=== PATIENT | female | born 2000 ===

== ENCOUNTER → 2022-04-16 09:55 | Outpatient (CLI) | payer SELFPAY ==
[2022-04-16 20:36] LABS: Hematocrit 39.1 % (36-46); Hemoglobin 12.9 g/dL (12.0-16.0); Mean Corpuscular Hemoglobin 29.4 PG (26-34); Platelet Count 321 X10^3/uL (150-400); Red Blood Cell Count 4.39 X10^6/uL (4.0-5.2); White Blood Cell Count 9.5 X10^3/uL (4.5-11.0)
== END ==
PROVIDERS: PCP Physician Assistant Medical; Visit Provider Physician Assistant Medical
DX: R04.0 Epistaxis (principal); R42 Dizziness and giddiness
CPT/HCPCS: 85027

== ENCOUNTER 2022-04-16 14:20 | Emergency (ER) | payer BC, SELFPAY ==
[2022-04-16 15:09] VITALS: BP 133/80; PULSE 79; RESP 18; TEMP 36.9; O2SAT 100; BMI 19.8
[2022-04-16] MEDS: OXYMETAZOLINE NASAL SPRAY 15 ML 2 SPRAYS NASAL (15:28)
[2022-04-16 15:32] LABS: Add Manual Diff / Slide Review NO; Basophils Absolute Auto 0 /uL (0-100); Basophils Percent Auto 0.5 % (0-2); Eosinophils Absolute Auto 100 /uL (0-450); Eosinophils Percent Auto 0.7 % (2-4); Hematocrit 37.5 % (36-46); Hemoglobin 12.7 g/dL (12.0-16.0); Lymphocytes Absolute Auto 1500 /uL (1100-4500); Lymphocytes Percent Auto 17.3 % (25-40); Mean Corpuscular HGB Conc 33.8 % (30-36); Mean Corpuscular Hemoglobin 29.4 PG (26-34); Monocytes Absolute Auto 700 /uL (0-900); Monocytes Percent Auto 8.2 % (3-14); Neutrophils Absolute Auto 6200 /uL (1500-7000); Neutrophils Percent Auto 73.3 % (50-75); Platelet Count 307 X10^3/uL (150-400); Red Blood Cell Count 4.31 X10^6/uL (4.0-5.2); White Blood Cell Count 8.4 X10^3/uL (4.5-11.0)
--- NOTE | 2022-04-16 16:20 | ED_ITS ---
HPI - Epistaxis <AKILAH Longoria - Last Filed: 04/16/22 16:57> General Chief complaint: Nasal Problem Stated complaint: Nose bleeds Time Seen by Provider: 04/16/22 15:25 Source: patient Mode of arrival: Ambulatory History of Present Illness HPI Narrative: This is a 21-year-old female who presents to the emergency department after an hour long epistaxis episode last night and another one this morning. She states that she went to the [facility] and was told here to come here for evaluation of her blood counts. She denies any active epistaxis at this time. States that she had to hold pressure and use a clamp for long period of time. She states that it was pouring for awhile and took a long time to clot. She denies a history of significant nosebleeds, she endorses some seasonal allergies. She d enies any sinus tenderness, recent fever, nausea vomiting. Related Data Previous Rx's Medication Instructions Recorded oxymetazoline 0.05 % nasal spray 1 spray intranasal ONCE PRN 04/16/22 (Afrin Sinus (oxymetazoline)) epistaxis #15 mL Allergies Allergy/AdvReac Type Severity Reaction Status Date / Time No Known Drug Allergies Allergy Verified 04/16/22 15:13 Review of Systems <KAILAH Longoria Last Filed: 04/16/22 16:57> Review of Systems Narrative: General: denies fever, chills Head/Neck: denies headache, neck pain Eyes: denies visual changes, eye pain Cardio: denies chest pain, palpitations Respiratory: denies shortness of breath, cough GI: denies abdominal pain, nausea, vomiting, or diarrhea : denies dysuria, hematuria or flank pain MSK: denies new joint pain, muscle weakness or swelling Skin: denies rash, itching or wound Neuro: denies numbness, tingling, dizziness Patient History <AKILAH Longoria Last Filed: 04/16/22 16:57> Social History Smoking Status: Never smoker Smoking Status: Never smoker alcohol intake frequency: a few times a month Substance Use Type: does not use Exam <AKILAH Longoria Last Filed: 04/16/22 16:57> Narrative Exam Narrative: Independently reviewed vitals signs and nursing notes. General: cooperative, comfortable, in no acute distress, well groomed Head: atraumatic, symmetrical facial expressions Neck: supple Eyes: equal round and reactive, EOMI, conjunctiva normal Nose: nares patent, no rhinorrhea or epistaxis at this time, no obstruction or visible polyp Mouth/Throat: moist mucus membranes Cardiovascular: regular rate and rhythm, no peripheral edema, warm extremities Neuro: normal speech and cognition, A&O x3 Psych: mental status is grossly normal, congruent mood, normal affect, pleasant and cooperative Initial Vital Signs Initial Vital Signs: Vital Signs Temperature 98.4 F 04/16/22 15:09 Pulse Rate 79 04/16/22 15:09 Respiratory Rate 18 04/16/22 15:09 Blood Pressure 133/80 04/16/22 15:09 Pulse Oximetry 100 04/16/22 15:09 Oxygen Delivery Method 04/16/22 15:09 <Emily Valdes DO - Last Filed: 04/23/22 21:32> Initial Vital Signs Initial Vital Signs: Vital Signs Temperature 98.4 F 04/16/22 15:09 Pulse Rate 79 04/16/22 15:09 Respiratory Rate 18 04/16/22 15:09 Blood Pressure 133/80 04/16/22 15:09 Pulse Oximetry 100 04/16/22 15:09 Oxygen Delivery Method 04/16/22 15:09 Course <AKILAH Longoria - Last Filed: 04/16/22 16:57> Orders Ordered: Discontinued Medications Oxymetazoline HCl (Oxymetazoline Nasal [place] 15 Ml) 2 sprays NASAL NOW ONE Stop: 04/16/22 15:19 Last Admin: 04/16/22 15:28 Dose: 2 sprays Documented By: AMU Vital Signs Vital signs: Vital Signs - 8 hr 04/16/22 15:09 Temperature 98.4 F Pulse Rate 79 Respiratory Rate 18 Blood Pressure 133/80 Pulse Oximetry 100 Oxygen Delivery Method Room Air <Emily Valdes DO - Last Filed: 04/23/22 21:32> Orders Ordered: Discontinued Medications Oxymetazoline HCl (Oxymetazoline Nasal [place] 15 Ml) 2 sprays NASAL NOW ONE Stop: 04/16/22 15:19 Last Admin: 04/16/22 15:28 Dose: 2 sprays Documented By: AMU Vital Signs Vital signs: Vital Signs - 8 hr 04/16/22 15:09 Temperature 98.4 F Pulse Rate 79 Respiratory Rate 18 Blood Pressure 133/80 Pulse Oximetry 100 Oxygen Delivery Method Room Air MDM - Epistaxis <AKILAH Longoria - Last Filed: 04/16/22 16:57> Lab Data Result diagrams: 04/16/22 15:23 Labs: Lab Results 04/16/22 Range/Units 15:23 WBC 8.4 (4.5-11.0) X10^3/uL RBC 4.31 (4.0-5.2) X10^6/uL Hgb 12.7 (12.0-16.0) g/dL Hct 37.5 (36-46) % MCV 87.0 (80-100) fL MCH 29.4 (26-34) PG MCHC 33.8 (30-36) % RDW 13.0 (11.6-14.8) % Plt Count 307 (150-400) X10^3/uL Neut % (Auto) 73.3 (50-75) % Lymph % (Auto) 17.3 L (25-40) % Bay % (Auto) 8.2 (3-14) % Eos % (Auto) 0.7 L (2-4) % Baso % (Auto) 0.5 (0-2) % Neut # (Auto) 6200 (4850-2931) /uL Lymph # (Auto) 1500 (3776-1265) /uL Bay # (Auto) 700 (0-900) /uL Eos # (Auto) 100 (0-450) /uL Baso # (Auto) 0 (0-100) /uL MDM Narrative Medical decision making narrative: This is a 21-year-old female presents to the emergency department for epistaxis episodes lasting 1 hour or longer last night and today with concern for blood loss. She was seen at the [facility] this morning, sent over to the emergency department for evaluation due to blood loss. She does not currently have any epistaxis, she was given Afrin to use if she develops recurrent epistaxis episode today, she is not on anticoagulants, suggested using a humidifier, nasal saline spray or Vaseline as needed, she does not use nasal oxygen. She has some mild seasonal allergy symptoms, encouraged to use nasal saline to help keep her nasal mucosa moist. Use Afrin and a nasal clamp before any further episodes of epistaxis and return to the emergency department if unable to resolve at home with 1 hour of attempting. Patient is appropriate and amenable to discharge home. Vital signs are stable on repeat examination is unremarkable. Patient has been informed of results. Patient has been given strict return to ER precautions for any new or worsening symptoms. Patient understands to follow up closely with outpatient providers as instructed. Patient understands plan and agrees to discharge home. All questions and concerns answered at this time. <Emily Valdes, DO - Last Filed: 04/23/22 21:32> Lab Data Labs: Lab Results 04/16/22 Range/Units 15:23 WBC 8.4 (4.5-11.0) X10^3/uL RBC 4.31 (4.0-5.2) X10^6/uL Hgb 12.7 (12.0-16.0) g/dL Hct 37.5 (36-46) % MCV 87.0 (80-100) fL MCH 29.4 (26-34) PG MCHC 33.8 (30-36) % RDW 13.0 (11.6-14.8) % Plt Count 307 (150-400) X10^3/uL Neut % (Auto) 73.3 (50-75) % Lymph % (Auto) 17.3 L (25-40) % Bay % (Auto) 8.2 (3-14) % Eos % (Auto) 0.7 L (2-4) % Baso % (Auto) 0.5 (0-2) % Neut # (Auto) 6200 (4602-4052) /uL Lymph # (Auto) 1500 (5918-5871) /uL Bay # (Auto) 700 (0-900) /uL Eos # (Auto) 100 (0-450) /uL Baso # (Auto) 0 (0-100) /uL Discharge Plan Departure Patient Disposition: Home Clinical Impression: Epistaxis Instructions: DI for Nosebleed Activity Restrictions/Additional Instructions: *You have been diagnosed with a nosebleed which has improved. Your blood counts are normal and stable, I encourage you to stay hydrated eat a variety of foods, try using a humidifier in her room at night. You can use Vaseline on the inside of your nasal septum to help prevent this from getting dry and bleeding. You can also use a nasal saline spray which is probably more effective. If you develop another nosebleed which is difficult to control, 1st blow out the blood clot, sprayed some Afrin up the near that is bleeding and put a nose clamp on the soft part your nose for at least 15 minutes. After that, you may check to see if it is done bleeding, this is most likely a raw area on the nasal septum side that will need couple of days to heal. Try to prevent it from getting dry, it bleeds much easier when it is. Do not use this nasal spray for multiple days in a row, only use it for when it is bleeding. Otherwise use regular saline nasal spray or Vaseline. Thank you for coming in getting your lab work checked, I want you to drink plenty of water over the next couple of days. *What to do: *Please continue to take your regular medications as directed. [ ] New medication prescriptions sent to your pharmacy: [ ] [ ] New medication written as a paper prescription [x ] No new medications given *Please follow up with your primary care provider in 2-3 days, call for an appointment. Let them know you were seen in the Emergency Department and that we asked that you be seen for follow-up. We will electronically transmit a record of today's note if your PCP is in our system *If you do not have a primary care provider please contact [phone] to establish care with one of the [facility] primary care providers. *Return to Emergency Department if you should have any new, worsening or concerning symptoms, such as [fever greater than 101F, chills, worsening pain, persistent vomiting or other bothersome symptoms] Prescriptions: No Action oxymetazoline [Afrin Sinus (oxymetazoline)] 0.05 % spray,non-aerosol 1 spray intranasal ONCE PRN (Reason: epistaxis) Qty: 15 0RF Referrals: Maia Morrow PA-C [Primary Care Provider] - Visit Report Forms: Patient Portal/API <Emily Valdes DO - Last Filed: 04/23/22 21:32> [facility] ED Attending Denishaature Attestation: I was immediately available in the department for consultation. Documentation has been reviewed.
== END 2022-04-16 17:00 | disposition home or self-care (01) ==
PROVIDERS: Emergency Provider Nurse Practitioner Critical Care Medicine; PCP Physician Assistant Medical
DX: R04.0 Epistaxis (principal); R42 Dizziness and giddiness
CPT/HCPCS: 85025; 85027; 99282; A9270